=== PATIENT | male | born 1960 | race Two or more races ===

== ENCOUNTER 2019-09-21 12:17 | Inpatient (IN) | payer OTHER ==
[~2019-09-21] VITALS: Ht 175.3 cm; Wt 128.5 kg
[2019-09-21 13:39] LABS: Hematocrit 49.1 % (41.0-53.0); Hemoglobin 16.5 g/dL (13.5-17.5); Mean Corpuscular Hemoglobin 31.8 pg (28.0-32.0); Mean Corpuscular Hgb Conc. 33.5 g/dL (32.0-36.0); Mean Corpuscular Volume 94.8 fL (80.0-100.0); Platelet Count (auto) 235 10^3/uL (140-450); Red Blood Cells 5.18 10^6/uL (4.5-5.90); Red Cell Distribution Width 13.7 % (11.8-14.3); White Blood Cell 23.7 10^3/uL (4.4-10.8)
[2019-09-21 13:42] LABS: Band Neutrophils % (manual) 0; Basophils % (manual) 0 (0.0-2.0); Blast Cells 0; Eosinophils % (manual) 0 (0-7); Metamyelocytes % 0; Myelocytes % 0; Promyelocytes % 0
[2019-09-21 13:53] LABS: Albumin 3.8 g/dL (3.4-5.0); BUN/Creatinine Ratio 20.1; Calcium 8.9 mg/dL (8.5-10.1)
[2019-09-21 13:57] LABS: Bilirubin, Total 0.7 mg/dL (0.2-1.0); Total Protein 8.2 g/dL (6.4-8.2)
[2019-09-21 14:10] LABS: Potassium 2.8 mmol/L (3.5-5.1)
[2019-09-21 14:26] LABS: Lymphocytes % (manual) 9 (10.0-50.0); Monocytes % (manual) 5 (0-12); Reactive Lymphocytes 2
[2019-09-21] MEDS ORDERED: POTASSIUM CHL 20MEQ/100ML 100 ML IV ONE (14:30)
[2019-09-21] MEDS ORDERED: MORPHINE SULF INJ 2 MG/ML SYRINGE 1ML IV PRN ×2 (15:00)
[2019-09-21] MEDS ORDERED: NITROGLYCERIN 0.4 MG SL TAB SL PRN (15:00)
[2019-09-21] MEDS ORDERED: ONDANSETRON HCL 4 MG/2 ML VIAL IV PRN (15:00)
[2019-09-21] MEDS ORDERED: D5W/SOD CHL 0.45%/KCL 20MEQ 1,000 ML IV ONE (15:00)
[2019-09-21] MEDS ORDERED: levoFLOXacin 500MG 100 ML IV ONE (15:15)
[2019-09-21 15:43] LABS: INR 0.99 (0.9-1.15); Partial Thromboplastin Time 26.1 sec (23.64-32.05)
[2019-09-21] MEDS ORDERED: metroNIDAZOLE 500MG/100ML 100 ML IV ONE (17:00)
[2019-09-21] MEDS: metroNIDAZOLE 500MG/100ML 100 ML IV SCH (21:29)
[2019-09-21] MEDS: PANTOPRAZOLE 40 MG/10 ML VIAL INJ IV SCH (21:29)
[2019-09-21 22:00] VITALS: BP 153/112
[2019-09-21] MEDS ORDERED: cloNIDine HCL 0.1 MG TAB PO PRN (23:15)
[2019-09-22] VITALS (21 sets, daily range): BP systolic 113–187; BP diastolic 54–114
[2019-09-22] MEDS: metroNIDAZOLE 500MG/100ML 100 ML IV SCH ×3 (05:36→23:45)
[2019-09-22 06:52] LABS: Basophils # (auto) 0 10 ^3/uL (0-0.2); Basophils % (auto) 0.1 % (0.0-2.0); Eosinophils # (auto) 0 10 ^3/uL (0-0.8); Hemoglobin 15.6 g/dL (13.5-17.5); Lymphocytes # (auto) 1.3 10 ^3/uL (0.4-5.4); Mean Corpuscular Hemoglobin 32.5 pg (28.0-32.0); Mean Corpuscular Hgb Conc. 34.8 g/dL (32.0-36.0); Mean Corpuscular Volume 93.4 fL (80.0-100.0); Monocytes # (auto) 1.7 10 ^3/uL (0-1.3); Monocytes % (auto) 8.2 % (0.0-12.0); Neutrophils # (auto) 18.1 10 ^3/uL (1.6-8.6); Neutrophils % (auto) 85.7 % (37.0-80.0); Platelet Count (auto) 215 10^3/uL (140-450); Red Blood Cells 4.82 10^6/uL (4.5-5.90); Red Cell Distribution Width 13.7 % (11.8-14.3); White Blood Cell 21.2 10^3/uL (4.4-10.8)
[2019-09-22 07:01] LABS: Albumin 3.6 g/dL (3.4-5.0); Calcium 8.3 mg/dL (8.5-10.1)
[2019-09-22 07:05] LABS: Bilirubin, Total 0.8 mg/dL (0.2-1.0); Total Protein 7.5 g/dL (6.4-8.2)
[2019-09-22 07:17] LABS: Potassium 2.9 mmol/L (3.5-5.1)
[2019-09-22] MEDS ORDERED: LABETALOL HCL 5 MG/ML 4ML SYRINGE IV PRN (08:30)
[2019-09-22] MEDS: PANTOPRAZOLE 40 MG/10 ML VIAL INJ IV SCH ×2 (08:55→23:45)
[2019-09-22] MEDS: POTASSIUM CHL 20MEQ/100ML 100 ML IV SCH ×4 (08:56→19:16)
[2019-09-22] MEDS ORDERED: ENOXAPARIN SOD 40 MG/0.4 ML SYRINGE SC SCH (10:00)
[2019-09-22] MEDS ORDERED: levoFLOXacin 500MG 100 ML IV SCH (10:00)
[2019-09-22] MEDS ORDERED: hydrALAZINE HCL 20 MG/ML VL IV PRN (13:30)
[2019-09-22] MEDS ORDERED: cloNIDine 0.3 mg/24hr 7DAY PATCH TD SCH (14:00)
[2019-09-22 16:21] LABS: Alcohol, Urine < 3.0 mg/dL (0-5); Amphetamine Screen, Urine NEGATIVE (NEGATIVE); Barbiturate Scree,Urine NEGATIVE (NEGATIVE); Benzodiazephine Screen, Urine NEGATIVE (NEGATIVE); Cannabinoid Screen, Urine NEGATIVE (NEGATIVE); Cocaine Screen, Urine NEGATIVE (NEGATIVE); Opiate Scree,Urine NEGATIVE (NEGATIVE); Phencyclidine Screen, Urine NEGATIVE (NEGATIVE)
[2019-09-22 16:26] LABS: INR 1.01 (0.9-1.15); Partial Thromboplastin Time 26.5 sec (23.64-32.05)
[2019-09-22] MEDS ORDERED: MANNITOL 20% SOLN 100 gm/500ml 350 ML IV ONE (21:15)
[2019-09-22] MEDS ORDERED: ACETAMINOPHEN 650 MG RECT SUPP PR PRN (22:00)
[2019-09-22 22:48] LABS: BUN/Creatinine Ratio 19.4; Calcium 8.3 mg/dL (8.5-10.1); Potassium 3.1 mmol/L (3.5-5.1)
[2019-09-23] VITALS (49 sets, daily range): BP systolic 84–152; BP diastolic 45–92
[2019-09-23] MEDS: POTASSIUM CHL 20MEQ/100ML 100 ML IV SCH ×3 (01:30→05:20)
[2019-09-23 02:28] LABS: BUN/Creatinine Ratio 17.8; Calcium 8.1 mg/dL (8.5-10.1); Potassium 3.3 mmol/L (3.5-5.1)
[2019-09-23] MEDS ORDERED: ETOMIDATE (2MG/ML) 20ML VIAL IV ONE ×2 (03:00→03:30)
[2019-09-23] MEDS ORDERED: SUCCINYLCHOLINE CHLORIDE 20 MG/ML 10ML VIAL IV ONE ×2 (03:01→03:30)
[2019-09-23] MEDS ORDERED: fentaNYL Drip 2500mCg/250mlNS 250 ML IV SCH (03:16)
[2019-09-23] MEDS ORDERED: MIDAZOLAM DRIP 50 mg/50mL 50 ML IV SCH (03:16)
[2019-09-23] MEDS ORDERED: MIDAZOLAM DRIP 50 mg/50mL 50 ML IV ONE (03:28)
[2019-09-23] MEDS: metroNIDAZOLE 500MG/100ML 100 ML IV SCH (06:00)
[2019-09-23 06:23] LABS: Basophils # (auto) 0 10 ^3/uL (0-0.2); Basophils % (auto) 0.2 % (0.0-2.0); Eosinophils # (auto) 0 10 ^3/uL (0-0.8); Hematocrit 43.8 % (41.0-53.0); Hemoglobin 15.2 g/dL (13.5-17.5); Lymphocytes # (auto) 1.1 10 ^3/uL (0.4-5.4); Lymphocytes % (auto) 7.3 % (10.0-50.0); Mean Corpuscular Hemoglobin 32.8 pg (28.0-32.0); Mean Corpuscular Hgb Conc. 34.7 g/dL (32.0-36.0); Mean Corpuscular Volume 94.6 fL (80.0-100.0); Monocytes # (auto) 1.6 10 ^3/uL (0-1.3); Neutrophils % (auto) 82.5 % (37.0-80.0); Nucleated Red Blood Cells % 0.1 %; Platelet Count (auto) 199 10^3/uL (140-450); Red Blood Cells 4.64 10^6/uL (4.5-5.90); Red Cell Distribution Width 13.5 % (11.8-14.3); White Blood Cell 15.7 10^3/uL (4.4-10.8)
[2019-09-23 06:45] LABS: BUN/Creatinine Ratio 17.7; Calcium 7.8 mg/dL (8.5-10.1); Potassium 3.6 mmol/L (3.5-5.1)
[2019-09-23] MEDS ORDERED: DexAMETHasone INJECTION 10 MG in D5W 5% 50 ML IV SCH (10:00)
[2019-09-23 11:26] LABS: Calcium 7.8 mg/dL (8.5-10.1); Potassium 3.4 mmol/L (3.5-5.1)
[2019-09-23 11:29] LABS: BUN/Creatinine Ratio 17.5
== END 2019-09-23 14:23 | disposition short-term general hospital (02) | DRG 64 ==
LOC: ER 12:17 → EDBD 12:17 → EEVIPCON 12:17 → OVERFLOW 12:18 → WEST WING 18:37 → ICU WEST 09-22 15:09
PROVIDERS: ADMIT Internal Medicine; ATTEND Internal Medicine
PROC: 5A1935Z Respiratory Ventilation, Less than 24 Consecutive Hours (ICD-10-PCS; principal; 2019-09-23)
PROC: 0BH17EZ Insertion of Endotracheal Airway into Trachea, Via Natural or Artificial Opening (ICD-10-PCS; 2019-09-23)
PROC: 06HY33Z Insertion of Infusion Device into Lower Vein, Percutaneous Approach (ICD-10-PCS; 2019-09-23)
PROC: B54BZZA Ultrasonography of Right Lower Extremity Veins, Guidance (ICD-10-PCS; 2019-09-23)
DX: I61.5 Nontraumatic intracerebral hemorrhage, intraventricular (principal); J96.00 Acute respiratory failure, unspecified whether with hypoxia or hypercapnia; G91.1 Obstructive hydrocephalus; J98.11 Atelectasis; N17.9 Acute kidney failure, unspecified; G93.40 Encephalopathy, unspecified; E87.6 Hypokalemia; R53.1 Weakness; D72.829 Elevated white blood cell count, unspecified; K44.9 Diaphragmatic hernia without obstruction or gangrene; I16.0 Hypertensive urgency; K75.9 Inflammatory liver disease, unspecified; E78.5 Hyperlipidemia, unspecified; Z91.19 Patient's noncompliance with other medical treatment and regimen; Z11.59 Encounter for screening for other viral diseases
CPT/HCPCS: 36415; 36600; 70450; 71045; 74176; 80048; 80053; 80307; 82140; 82805; 82962; 83930; 84443; 85007; 85025; 85027; 85610; 85730; 87040; 87070; 87081; 87086; 87205; 94002; 94003; 96365; 96368; C9113; G0378; J0330; J1100; J1956; J2250; J3480; J3490; J7060

== ENCOUNTER → 2020-02-02 | Outpatient (CLI) | payer OTHER | END | disposition home or self-care (01) | LOC: CT 09:13 | DX: G93.89 Other specified disorders of brain (principal); E78.2 Mixed hyperlipidemia; M19.90 Unspecified osteoarthritis, unspecified site; I62.9 Nontraumatic intracranial hemorrhage, unspecified; M25.569 Pain in unspecified knee; H52.10 Myopia, unspecified eye; H52.00 Hypermetropia, unspecified eye; H52.209 Unspecified astigmatism, unspecified eye; E55.9 Vitamin D deficiency, unspecified | CPT/HCPCS: 70450 ==